=== PATIENT | male | born 1985 | race Caucasian/White ===

== ENCOUNTER 2019-02-01 10:49 | Emergency (ER) | payer SELFPAY ==
[~2019-02-01] VITALS: Ht 167.6 cm; Wt 70.0 kg
[~2019-02-01 10:49] MED LIST: ANUSOL HC25 MG RE; BACTRIM DS1 TAB OR; BENADRYL 50MG C50 MG OR; CIPRO500 MG OR; DEPAKOTE250 MG OR; DEPAKOTE500 MG OR; GENTAMICIN0.11 OS; IMODIUM2 MG PO; LORTAB5 OR; NAPROSYN500 MG OR; NO; NO HOME MEDS; ONDANSETRON4 MG PO; PREVACID30 M2 PO; RISPERDAL1 M1 OR; VISTARIL50 MG OR; ZOLOFT100 MG OR
[2019-02-01] MEDS ORDERED: HYDROCORT2.52 EX (11:33)
[2019-02-01 11:35] VITALS: BP 139/85
== END 2019-02-01 11:35 | disposition home or self-care (01) | DRG 607 ==
LOC: ED 10:49
DX: L23.7 Allergic contact dermatitis due to plants, except food (principal)

== ENCOUNTER 2021-04-14 17:33 | Emergency (ER) | payer SELFPAY ==
[~2021-04-14] VITALS: Ht 165.1 cm; Wt 79.5 kg
[~2021-04-14 17:33] MED LIST changes: +HYDROCORT2.52 EX
[2021-04-14 17:35] VITALS: BP 166/95
[2021-04-14] MEDS ORDERED: SILVADENE1 % EX (18:46)
[2021-04-14] MEDS ORDERED: BENADRYL 50MG C50 MG PO (18:46)
== END 2021-04-14 19:18 | disposition home or self-care (01) | DRG 607 ==
LOC: ED 17:33
DX: L55.9 Sunburn, unspecified (principal)

== ENCOUNTER 2022-11-10 13:21 | Emergency (ER) | payer SELFPAY ==
[~2022-11-10] VITALS: Ht 165.1 cm; Wt 70.0 kg
[~2022-11-10 13:21] MED LIST changes: +BENADRYL 50MG C50 MG PO; +SILVADENE1 % EX
[2022-11-10 13:28] VITALS: BP 134/96
[2022-11-10 13:29] VITALS: BP 131/83
[2022-11-10 13:47] VITALS: BP 131/83
== END 2022-11-10 13:38 | disposition left against medical advice (07) | DRG 125 ==
LOC: ED 13:21
DX: H53.8 Other visual disturbances (principal); Z53.29 Procedure and treatment not carried out because of patient's decision for other reasons